=== PATIENT | male | born 1985 | race African-American/Black ===

== ENCOUNTER 2017-01-07 21:23 | Emergency (ER) | payer SELFPAY ==
[2017-01-07 21:34] VITALS: BP 130/70
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
[2017-01-07] MEDS ORDERED: BACITRACIN OINT TOP ONE (22:15)
--- NOTE | 2017-01-07 22:31 | XRAY Preliminary Report ---
Exam: XR Ankle 3 View LT IMPRESSION: 1. Minimally displaced transverse lateral malleolar fracture. This is at the level of the tibial fibu lar syndesmosis. 2. Ossific fragments anterior to the tibial plafond, worrisome for avulsion fractures. Donor site is uncertain on this exam. 3. Moderate soft tissue swelling. [facility] SITE ID: [id number]
--- NOTE | 2017-01-07 22:33 | XRAY Preliminary Report ---
Exam: XR Foot 3 View LT IMPRESSION: Ossific fragments anterior to the tibial plafond and potentially arise from the tibia con sidering the slight cortical irregularity of the anterior tibia seen on the lateral view. [facility] SITE ID: [id number]
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
== END 2017-01-07 22:44 | disposition home or self-care (01) ==
LOC: ED 21:23
DX: S82.832A Other fracture of upper and lower end of left fibula, initial encounter for closed fracture (principal); V28.9XXA Unspecified motorcycle rider injured in noncollision transport accident in traffic accident, initial encounter; X50.1XXA Overexertion from prolonged static or awkward postures, initial encounter
CPT/HCPCS: 29515; 73610; 73630; 99283; A9270